=== PATIENT | male | born 2000 | race Two or more races ===

== ENCOUNTER 2024-11-08 11:16 | Emergency (ER) | payer OTHER ==
[~2024-11-08] VITALS: Ht 175.3 cm; Wt 110.4 kg
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
--- NOTE | 2024-11-08 12:14 | DVH ---
CLINICAL INDICATION: fall injury TECHNIQUE: 2 views of the left shoulder Comparison: None FINDINGS/IMPRESSION: There is no acute fracture. There is 1.6 cm superior displacement of the distal aspect of left clavi kell relative to acromion, concerning for AC joint injury (Type V). Soft tissues are unremarkable.
[2024-11-08 12:44] VITALS: BP 123/86; PULSE 95; RESP 20; TEMP 97; O2SAT 95
[2024-11-08] MEDS: HYDROcodone-ACET 5/325MG TAB PO ONE (12:52)
== END 2024-11-08 12:56 | disposition home or self-care (01) ==
LOC: ER 11:16
DX: S43.085A Other dislocation of left shoulder joint, initial encounter (principal); S49.82XA Other specified injuries of left shoulder and upper arm, initial encounter; V89.2XXA Person injured in unspecified motor-vehicle accident, traffic, initial encounter; Y93.89 Activity, other specified; Y92.89 Other specified places as the place of occurrence of the external cause; Y99.8 Other external cause status
CPT/HCPCS: 73030